=== PATIENT | male | born 1985 | race African-American/Black ===

== ENCOUNTER 2019-12-12 20:22 | Emergency (ER) | payer OTHER ==
[2019-12-12] MEDS ORDERED: Sodium Chloride 0.9% 10 ML Syringe FLUSH PRN (20:38)
[2019-12-12] MEDS ORDERED: Sodium Chloride 0.9% 2.5 ML Syringe FLUSH PRN (20:38)
[2019-12-12] MEDS ORDERED: diphenhydrAMINE 50 MG/ML SDV IVPUSH ONE (21:01)
[2019-12-12] MEDS ORDERED: Metoclopramide 10 MG/2 ML SDV IV ONE (21:01)
[2019-12-12] MEDS ORDERED: Sodium Chloride 0.9% 1,000 ML IV ONE (21:05)
--- NOTE | 2019-12-12 21:05 | EDM.PDOC ---
ED HPI GENERAL MEDICAL PROBLEM - General Chief Complaint: Cardiovascular Problem Stated Complaint: HIGH BLOOD PRESSURE Time Seen by Provider: 12/12/19 20:28 Source of Information: Reports: Patient History Limitations: Reports: No Limitations - History of Present Illness INITIAL COMMENTS - FREE TEXT/NARRATIVE: HISTORY AND PHYSICAL: History of present illness: Patient is a 34-year-old male, with no past health history, who presents to the ED today with concern of headache which she believes is related to high blood pressure. Patient states that he first had this sort of headache 2 weeks ago and over the course of the past 2 weeks it has come and gone. Patient states every time he has the headache he checks his blood pressure and his blood pressure has been elevated. Patient states that he had just got today and believes that eating "junk food "increases blood pressure which causes headache. Patient states this is 1 of the worst headaches he is ever had and denies any head injury or trauma. Patient states that the headache is in the front of his forehead on both sides and is dull but intense. Patient states that he took a friend's blood pressure medication at about 8pm tonight to see if this would help. Patient states he has not taken any [id number] ibuprofen or Tylenol for his symptoms. Patient denies fever, chills, chest pain, shortness of breath, or cough. Denies neck stiff ness, change in vision, syncope, or near syncope. Denies nausea, vomiting, abdominal pain, diarrhea, constipation, or dysuria. Has not noted any blood in urine or stool. Patient has been eating and drinking appropriately. Review of systems: As per history of present illness and below otherwise all systems reviewed and negative. Past medical history: As per history of present illness and as reviewed below otherwise noncontributory. Surgical history: As per history of present illness and as reviewed below otherwise noncontributory. Social history: See social history for further information Family history: As per history of present illness and as reviewed below otherwise noncontributory. Physical exam: General: Patient is alert, oriented, and in no acute distress. Patient sitting on exam table and does appear mildly uncomfortable holding head in his hand. HEENT: Atraumatic, normocephalic, pupils equal and reactive bilaterally, negative for conjunctival pallor or scleral icterus, mucous membranes moist, TMs normal bilaterally, throat clear, neck supple, nontender, trachea midline. No drooling or trismus noted. No meningeal signs. No hot potato voice noted. Lungs: Clear to auscultation, breath sounds equal bilaterally, chest nontender. Heart: S1S2, regular rate and rhythm without overt murmur Abdomen: Soft, nondistended, nontender. Negative for masses or hepatosplenomegaly. Negative for costovertebral tenderness. Pelvis: Stable nontender. Genitourinary: Deferred. Rectal: Deferred. Skin: Intact, warm, dry. No lesions or rashes noted. Extremities: Atraumatic, negative for cords or calf pain. Neurovascular unremarkable. Neuro: Awake, alert, oriented. Cranial nerves II through XII unremarkable. Cerebellum unremarkable. Motor and sensory unremarkable throughout. Exam nonfocal. Notes: Dr. Mary verbally involved in patient care. Per , patient took 10mg of Lisinopril that was a friends hypertensive medication. While waiting for head CT scan, patient does have 1 episode of vomiting. Prior to giving Labetalol, patient has complete resolution of his symptoms and feeling much improved. Admission for observation was offered to patient but he declines at this time. All risks vs benefits discussed with patient and expresses understanding. Will send patient home with initial BP medication, however, had through conversation with patient that this will need further dose adjustments and management with a primary care provider. Patient has been placed on the expedited follow up list with a primary care provider Signs and symptoms that would prompt return to the ED thoroughly discussed with patient. Diagnostics: CBC, CMP, UA, EKG, CXR, Trop, Head CT Therapeutics: NS, Zofran, Benadryl, Labetalol 10mg IV Prescription: HCTZ, Potassium Impression: Headache, resolved Symptomatic hypertension Plan: 1. Take medication as prescribed. You can alternate ibuprofen and Tylenol as directed for pain and discomfort. 2. Follow-up with a primary care provider as discussed. You have been placed on the expedited follow-up list to be seen by primary care provider in the clinic. 3. Return to the ED as needed and as discussed. Definitive disposition and diagnosis as appropriate pending reevaluation and review of above. Headache Pain Score (Numeric/FACES): 7 - Related Data Allergies Allergy/AdvReac Type Severity Reaction Status Date / Time No Known Allergies Allergy Verified 10/10/20 20:37 Home Meds: Home Meds . [No Known Home Meds] 12/12/19 [History] Past Medical History - Past Health History Medical/Surgical History: Denies Medical/Surgical History - Infectious Disease History Infectious Disease History: Reports: None Social & Family History - Family History Family Medical History: Noncontributory - Tobacco Use Smoking Status *Q: Never Smoker Second Hand Smoke Exposure: No - Caffeine Use Caffeine Use: Reports: None - Recreational Drug Use Recreational Drug Use: No ED ROS GENERAL - Review of Systems Review Of Systems: Comprehensive ROS is negative, except as noted in HPI. ED EXAM, GENERAL - Physical Exam Exam: See Below (see dictation) Course - Vital Signs Last Recorded V/S: Last Vital Signs Temp 97.7 F 12/12/19 20:37 Pulse 72 12/13/19 00:30 Resp 12 12/13/19 00:30 BP 153/94 H 12/13/19 00:30 Pulse Ox 95 12/13/19 00:30 - Orders/Labs/Meds Orders: Active Orders 24 hr Category Date Time Status Saline Lock Insert [OM.PC] Stat Oth 12/12/19 20:38 Ordered Labs: Laboratory Tests 12/12/19 12/12/19 12/12/19 Range/Units 20:44 21:08 21:08 WBC 5.53 (4.0-11.0) K/uL RBC 5.78 (4.50-5.90) M/uL Hgb 15.4 (13.0-17.0) g/dL Hct 46.8 (38.0-50.0) % MCV 81.0 (80.0-98.0) fL MCH 26.6 L (27.0-32.0) pg MCHC 32.9 (31.0-37.0) g/dL RDW Std Deviation 42.3 (28.0-62.0) fl RDW Coeff of Patricia 14 (11.0-15.0) % Plt Count 201 (150-400) K/uL MPV 10.90 (7.40-12.00) fL Neut % (Auto) 46.1 L (48.0-80.0) % Lymph % (Auto) 43.9 H (16.0-40.0) % [place] % (Auto) 8.1 (0.0-15.0) % Eos % (Auto) 1.4 (0.0-7.0) % Baso % (Auto) 0.5 (0.0-1.5) % Neut # (Auto) 2.5 (1.4-5.7) K/uL Lymph # (Auto) 2.4 (0.6-2.4) K/uL [place] # (Auto) 0.5 (0.0-0.8) K/uL Eos # (Auto) 0.1 (0.0-0.7) K/uL Baso # (Auto) 0.0 (0.0-0.1) K/uL Nucleated RBC % 0.0 /100WBC Nucleated RBCs # 0 K/uL Sodium 139 (136-148) mmol/L Potassium 3.7 (3.5-5.1) mmol/L Chloride 103 (98-107) mmol/L Carbon Dioxide 26.4 (21.0-32.0) mmol/L BUN 16 (7.0-18.0) mg/dL Creatinine 1.4 H (0.8-1.3) mg/dL Est Cr Clr Drug Dosing 70.17 mL/min Estimated GFR (MDRD) > 60.0 ml/min Glucose 111 H (74-106) mg/dL Calcium 8.9 (8.5-10.1) mg/dL Total Bilirubin 0.4 (0.2-1.0) mg/dL AST 43 H (15-37) IU/L ALT 44 (14-63) IU/L Alkaline Phosphatase 74 (46-116) U/L Troponin I < 0.050 (0.000-0.056) ng/mL Total Protein 8.2 (6.4-8.2) g/dL Albumin 4.3 (3.4-5.0) g/dL Globulin 3.9 (2.6-4.0) g/dL Albumin/Globulin Ratio 1.1 (0.9-1.6) Urine Color YELLOW Urine Appearance SLT CLOUDY Urine pH 8.0 (5.0-8.0) Ur Specific [place] 1.020 (1.001-1.035) Urine Protein 30 H (NEGATIVE) mg/dL Urine Glucose (UA) NEGATIVE (NEGATIVE) mg/dL Urine Ketones NEGATIVE (NEGATIVE) mg/dL Urine Occult Blood NEGATIVE (NEGATIVE) Urine Nitrite NEGATIVE (NEGATIVE) Urine Bilirubin NEGATIVE (NEGATIVE) Urine Urobilinogen 0.2 (<2.0) EU/dL Ur Leukocyte Esterase NEGATIVE (NEGATIVE) Urine RBC 0-2 (0-2/HPF) Urine WBC 0-1 (0-5/HPF) Ur Epithelial Cells FEW (NONE-FEW) Amorphous Sediment LIGHT (NEGATIVE) Urine Bacteria RARE (NEGATIVE) Meds: Medications Discontinued Medications Generic Name Dose Route Start Last Admin Trade Name Freq PRN Reason Stop Dose Admin Diphenhydramine HCl 50 mg 12/12/19 21:01 12/12/19 21:08 Benadryl IVPUSH 12/12/19 21:02 50 mg ONETIME ONE Administration Hydrochlorothiazide 25 mg 12/12/19 22:37 12/12/19 22:45 Hydrochlorothiazide PO 12/12/19 22:38 25 mg ONETIME ONE Administration Sodium Chloride 1,000 mls @ 999 mls/hr 12/12/19 21:05 12/12/19 21:08 Normal Saline IV 12/12/19 22:05 999 mls/hr STAT ONE Administration Labetalol HCl 10 mg 12/12/19 21:52 12/12/19 22:01 Normodyne IVPUSH 12/12/19 21:53 10 mg ONETIME ONE Administration Protocol Metoclopramide HCl 10 mg 12/12/19 21:01 12/12/19 21:08 Reglan IV 12/12/19 21:02 10 mg ONETIME ONE Administration Ondansetron HCl Confirm 12/12/19 21:19 12/12/19 21:27 Zofran Administered 12/12/19 21:20 Not Given Dose 4 mg .ROUTE .STK-MED ONE Ondansetron HCl 4 mg 12/12/19 21:27 12/12/19 21:36 Zofran IVPUSH 12/12/19 21:28 4 mg ONETIME ONE Administration Sodium Chloride 10 ml 12/12/19 20:38 12/12/19 20:50 Saline Flush FLUSH 10 ml ASDIRECTED PRN Administration Keep Vein Open Sodium Chloride 2.5 ml 12/12/19 20:38 12/12/19 20:50 Saline Flush FLUSH 2.5 ml ASDIRECTED PRN Administration Keep Vein Open Departure - Departure Time of Disposition: 10:04 Disposition: Home, Self-Care 01 Clinical Impression: Headache Qualifiers: Headache type: unspecified Headache chronicity pattern: acute headache Intractability: not intractable Qualified Code(s): R51.9 - Headache, unspecified Hypertension Qualifiers: Hypertension type: unspecified Qualified Code(s): I10 - Essential (primary) hypertension Instructions: Hypertension, Adult, [id number], General Headache Without Cause, [id number] Referrals: PCP,None [Primary Care Provider] - Forms: ED Department Discharge Additional Instructions: The following information is given to patients seen in the emergency department who are being discharged to home. This information is to outline your options for follow-up care. We provide all patients seen in our emergency department with a follow-up referral. The need for follow-up, as well as the timing and circumstances, are variable depending upon the specifics of your emergency department visit. If you don't have a primary care physician on staff, we will provide you with a referral. We always advise you to contact your personal physician following an emergency department visit to inform them of the circumstance of the visit and for follow-up with them and/or the need for any referrals to a consulting specialist. The emergency department will also refer you to a specialist when appropriate. This referral assures that you have the opportunity for follow-up care with a specialist. All of these measure are taken in an effort to provide you with optimal care, which includes your follow-up. Under all circumstances we always encourage you to contact your private physician who remains a resource for coordinating your care. When calling for follow-up care, please make the office aware that this follow-up is from your recent emergency room visit. If for any reason you are refused follow-up, please contact the [facility] Emergency Department at and asked to speak to the emergency department charge nurse. [facility] [address] [place] [id number] [facility] [address] [place] [address] 1. Take medication as prescribed. You can alternate ibuprofen and Tylenol as directed for pain and discomfort. 2. Follow-up with a primary care provider as discussed. You have been placed on the expedited follow-up list to be seen by primary care provider in the [facility]. 3. Return to the ED as needed and as discussed. Sepsis Event Note (ED) - Evaluation Sepsis Screening Result: No Definite Risk - Focused Exam Vital Signs: Vital Signs Pulse Resp BP Pulse Ox 12/13/19 00:30 72 12 153/94 H 95 12/12/19 23:26 69 9 L 169/107 H 98 12/12/19 22:35 65 11 L 194/109 H 97 - My Orders Last 24 Hours: My Active Orders 12/12/19 20:38 Saline Lock Insert [OM.PC] Stat - Assessment/Plan Last 24 Hours: My Active Orders 12/12/19 20:38 Saline Lock Insert [OM.PC] Stat
[2019-12-12] MEDS ORDERED: Ondansetron 4 MG/2 ML SDV ONE (21:19)
[2019-12-12] MEDS ORDERED: Ondansetron 4 MG/2 ML SDV IVPUSH ONE (21:27)
--- NOTE | 2019-12-12 21:27 | CR ---
INDICATION: Hypertension. TECHNIQUE: AP chest. COMPARISON: None. FINDINGS: Heart size is upper limits of normal, which may be accentuated by the technique. Pulmonary vasculature is unremarkable. Lungs are grossly clear. No appreciable pleural fluid or pneumothorax. IMPRESSION: No signs of acute thoracic disease. Dictated by Vu Pacheco MD @ 12/12/2019 9:26:05 PM Dictated by: Vu Pacheco MD @ 12/12/2019 21:26:12 (Electronically Signed)
[2019-12-12 21:45] LABS: BLOOD UREA NITROGEN,BUN 16 mg/dL (7.0-18.0); CARBON DIOXIDE,CO2 26.4 mmol/L (21.0-32.0); CHLORIDE,CL 103 mmol/L (98-107); GLUCOSE RANDOM 111 mg/dL (74-106); POTASSIUM,K 3.7 mmol/L (3.5-5.1); SODIUM,NA 139 mmol/L (136-148)
[2019-12-12] MEDS ORDERED: Labetalol 100 MG/20 ML MDV IVPUSH ONE (21:52)
--- NOTE | 2019-12-12 22:16 | CT ---
HISTORY: Pain. Hypertension. TECHNIQUE: CT brain without contrast. COMPARISON: None. FINDINGS: No acute intracranial hemorrhage. No extra-axial collection. No mass effect or midline shift. Ventricular system is normal caliber. Cisterns are patent. Serrato-white differentiation is maintained. Calvarium is intact. Visualized paranasal sinuses and mastoid air cells are clear. IMPRESSION: No acute intracranial abnormality. Please note that all CT scans at this facility use dose modulation, iterative reconstruction, and/or weight-based dosing when appropriate to reduce radiation dose to as low as reasonably achievable. Dictated by Hammad Tam MD @ Dec 12 2019 10:13PM Signed by Dr. Hammad Tam @ Dec 12 2019 10:14PM
[2019-12-12] MEDS ORDERED: Hydrochlorothiazide 25 MG Tab PO ONE (22:37)
== END 2019-12-13 00:30 | disposition home or self-care (01) ==
LOC: MW.ED 20:22
DX: I10 Essential (primary) hypertension (principal); R11.10 Vomiting, unspecified
CPT/HCPCS: 36415; 70450; 71045; 80053; 81001; 84484; 85025; 93005; 96374; 96375; 99284; A9270; J1200; J2405; J2765; J3490; J7030; 99283

== ENCOUNTER 2024-03-29 17:09 | Emergency (ER) | payer BC ==
[2024-03-29] MEDS: Amoxicillin 500 MG Cap PO STA (20:20)
[2024-03-29] MEDS: Dexamethasone 4 MG Tab PO STA (20:20)
== END 2024-03-29 20:23 | disposition home or self-care (01) ==
LOC: MW.ED 17:09
DX: J02.9 Acute pharyngitis, unspecified (principal); Z79.899 Other long term (current) drug therapy; Z75.8 Other problems related to medical facilities and other health care
CPT/HCPCS: 87428; 99284; A9270; J8540